=== PATIENT | female | born 1995 | race African-American/Black ===

== ENCOUNTER 2021-04-20 20:56 | Emergency (ER) | payer OTHER ==
[~2021-04-20] VITALS: Ht 157.5 cm; Wt 44.5 kg
== END 2021-04-20 23:39 | disposition home or self-care (01) ==
LOC: ER 20:56
DX: K29.20 Alcoholic gastritis without bleeding (principal); F10.129 Alcohol abuse with intoxication, unspecified; Y90.9 Presence of alcohol in blood, level not specified